=== PATIENT | female | born 1985 | race African-American/Black ===

== ENCOUNTER 2016-09-09 12:42 | Emergency (ER) | payer OTHER ==
[2016-09-09 12:58] VITALS: BP 107/74
--- NOTE | 2016-09-09 13:35 | Emergency Department Report ---
ED Female HPI - General Chief complaint: Urogenital-Female Stated complaint: PAINFUL URINATION Source: patient Mode of arrival: Ambulatory Limitations: No Limitations - History of Present Illness Initial comments: 31 year old female presents to ED with dysuria x2 days. patient is stable, neurologically intact and in no acute distress. MD Complaint: dysuria -: Gradual Radiation: non-radiating Severity: mild Quality: burning Consistency: constant Worsens with: urination Are you Now?: No Associated Symptoms: denies other symptoms - Related Data Sexually active: No Previous Rx's Medication Instructions Recorded Last Taken Type Acetaminophen/Codeine [Tylenol #3] 1 tab PO Q6H PRN #20 tab 03/27/15 Unknown Rx Phenazopyridine [Pyridium] 200 mg PO TID #6 tab 03/27/15 Unknown Rx Sulfamethoxazole/Trimethoprim 1 each PO BID #14 tablet 03/27/15 Unknown Rx [Bactrim DS TAB] Phenazopyridine [Pyridium] 100 mg PO TID #9 tab 09/09/16 Unknown Rx Sulfamethoxazole/Trimethoprim 1 each PO BID #14 tablet 09/09/16 Unknown Rx [Bactrim DS TAB] Allergies Allergy/AdvReac Type Severity Reaction Status Date / Time No Known Allergies Allergy Verified 03/27/15 01:17 ED Review of Systems ROS: Stated complaint: PAINFUL URINATION Other details as noted in HPI Constitutional: denies: chills, fever Eyes: denies: eye pain, eye discharge, vision change ENT: denies: ear pain, throat pain Respiratory: denies: cough, shortness of breath, wheezing Cardiovascular: denies: chest pain, palpitations Endocrine: no symptoms reported Gastrointestinal: denies: abdominal pain, nausea, diarrhea Genitourinary: dysuria. denies: urgency, hematuria, discharge Musculoskeletal: denies: back pain, joint swelling, arthralgia Skin: denies: rash, lesions Neurological: denies: headache, weakness, paresthesias Psychiatric: denies: anxiety, depression Hematological/Lymphatic: denies: easy bleeding, easy bruising ED Past Medical Hx - Past Medical History Previous Medical History?: No - Surgical History Past Surgical History?: Yes Additional Surgical History: C section - Social History Smoking Status: Never Smoker Substance Use Type: Alcohol, Non Opiate Pain - Medications Home Medications: Home Medications Medication Instructions Recorded Confirmed Last Taken Type Acetaminophen/Codeine [Tylenol #3] 1 tab PO Q6H PRN #20 tab 03/27/15 Unknown Rx Phenazopyridine [Pyridium] 200 mg PO TID #6 tab 03/27/15 Unknown Rx Sulfamethoxazole/Trimethoprim 1 each PO BID #14 tablet 03/27/15 Unknown Rx [Bactrim DS TAB] Phenazopyridine [Pyridium] 100 mg PO TID #9 tab 09/09/16 Unknown Rx Sulfamethoxazole/Trimethoprim 1 each PO BID #14 tablet 09/09/16 Unknown Rx [Bactrim DS TAB] ED Physical Exam - General Limitations: No Limitations General appearance: alert, in no apparent distress - Head Head exam: Present: atraumatic, normocephalic - Eye Eye exam: Present: normal appearance - ENT ENT exam: Present: mucous membranes moist - Neck Neck exam: Present: normal inspection - Respiratory Respiratory exam: Present: normal lung sounds bilaterally. Absent: respiratory distress - Cardiovascular Cardiovascular Exam: Present: regular rate, normal rhythm. Absent: systolic murmur, diastolic murmur, rubs, gallop - GI/Abdominal GI/Abdominal exam: Present: soft, normal bowel sounds. Absent: tenderness - External exam: Present: normal external exam Speculum exam: Present: normal speculum exam Bi-manual exam: Present: normal bi-manual exam. Absent: cervical motion tendernes - Extremities Exam Extremities exam: Present: normal inspection - Back Exam Back exam: Present: normal inspection - Neurological Exam Neurological exam: Present: alert, oriented X3, normal gait - Psychiatric Psychiatric exam: Present: normal affect, normal mood - Skin Skin exam: Present: warm, dry, intact, normal color. Absent: rash ED Course Vital Signs 09/09/16 12:55 Temperature 98.3 F Pulse Rate 72 Respiratory 18 Rate Blood Pressure 107/74 O2 Sat by Pulse 97 Oximetry ED Medical Decision Making - Lab Data Lab Results 09/09/16 Range/Units 13:21 Urine Color Straw (Yellow) Urine Turbidity Clear (Clear) Urine pH 5.0 (5.0-7.0) Ur Specific [place] 1.010 (1.003-1.030) Urine Protein <15 mg/dl (Negative) mg/dL Urine Glucose (UA) Neg (Negative) mg/dL Urine Ketones Neg (Negative) mg/dL Urine Blood Sm (Negative) Urine Nitrite Neg (Negative) Urine Bilirubin Neg (Negative) Urine Urobilinogen < 2.0 (<2.0) mg/dL Ur Leukocyte Esterase Lg (Negative) Urine WBC (Auto) 81.0 H (0.0-6.0) /HPF Urine RBC (Auto) 18.0 (0.0-6.0) /HPF U Epithel Cells (Auto) 3.0 (0-13.0) /HPF Urine Bacteria (Auto) 1+ (Negative) /HPF Urine Mucus Few /HPF Urine HCG, Qual Negative (Negative) - Medical Decision Making 31 year old female positive for UTI. patient will be placed on PO bactrim. negative preg test. patient has declined STD prophylaxis and understands her results can be accessed thru medical records within 3-4 days. Critical care attestation.: If time is entered above; I have spent that time in minutes in the direct care of this critically ill patient, excluding procedure time. ED Disposition Clinical Impression: UTI (urinary tract infection) Qualifiers: Urinary tract infection type: acute cystitis Hematuria presence: without hematuria Qualified Code(s): N30.00 - Acute cystitis without hematuria Disposition: DISCHARGED TO HOME OR SELFCARE Is pt being admited?: No Does the pt Need Aspirin: No Condition: Stable Prescriptions: Phenazopyridine [Pyridium] 100 mg PO TID #9 tab Sulfamethoxazole/Trimethoprim [Bactrim DS TAB] 1 each PO BID #14 tablet Referrals: PRIMARY CARE, [Primary Care Provider] - 3-5 Days
[2016-09-09 13:48] LABS: Bacteria,Urine 1+ /HPF (Negative); Bilirubin,Urine NEG (Negative); Blood,Urine SM (Negative); Ketones,Urine NEG (Negative); Leukocyte Esterase,Urine LG (Negative); Mucus,Urine FEW /HPF; Nitrite,Urine NEG (Negative); Protein,Urine <15 mg/dL mg/dL (Negative); Urobilinogen,Urine < 2.0 mg/dL (<2.0)
== END 2016-09-09 14:53 | disposition home or self-care (01) ==
LOC: ED 12:42
DX: N39.0 Urinary tract infection, site not specified (principal)
CPT/HCPCS: 81001; 81025; 87210; 87591